=== PATIENT | female | born 1980 | race Caucasian/White ===

== ENCOUNTER 2022-06-07 05:10 | Observation (INO) ==
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
[2022-06-07] MEDS ORDERED: PREGABALIN 75 MG CAP PO SCH (06:00)
[2022-06-07] MEDS ORDERED: ROPIVACAINE 0.5% HCL/PF 150 MG, BUPIVACAINE 0.75% MPF 20 ML, EPINEPHrine 30MG/30ML (OR ... INSTIL SCH (06:00)
[2022-06-07] MEDS ORDERED: dexAMETHasone 4 MG TAB PO SCH (06:00)
[2022-06-07] MEDS ORDERED: METOCLOPRAMIDE HCL 10 MG TABLET PO SCH (06:00)
[2022-06-07] MEDS ORDERED: FAMOTIDINE 20 MG TAB PO SCH (06:00)
[2022-06-07] MEDS ORDERED: ACETAMINOPHEN 500 MG TAB PO SCH ×2 (06:00→14:00)
[2022-06-07] MEDS ORDERED: ceFAZolin 2000MG 2,000 MG/15 ML SYR IV SCH ×2 (06:00→16:00)
[2022-06-07] MEDS ORDERED: LR 500ML BOLUS, THEN 15ML/HR IV SCH (06:00)
[2022-06-07] MEDS ORDERED: BUPIVACAINE 0.5 % 5 MG/1 ML PF 10ML VIAL ONE (06:20)
[2022-06-07] MEDS ORDERED: ROPIVACAINE 0.5% 5 MG/ML 30 ML VIAL ONE (06:21)
[2022-06-07] MEDS ORDERED: TRANEXAMIC ACID / 0.7% NACL 1000MG/100ML BAG IV ONE (06:40)
[2022-06-07] MEDS ORDERED: fentaNYL citrate 100 MCG/2 ML VIAL ONE (06:44)
[2022-06-07] MEDS ORDERED: MIDAZOLAM HCL 1 MG/ML 2ML VIAL ONE (06:44)
[2022-06-07] MEDS ORDERED: PROPOFOL IV EMULSION 10 MG/ML 20 ML VIAL IV ONE (06:47)
[2022-06-07] MEDS ORDERED: ORTHO JOINT ANESTHETIC ONE (06:55)
[2022-06-07] MEDS ORDERED: ONDANSETRON INJ 2 MG/ML 2 ML VIAL ONE (07:32)
[2022-06-07] MEDS ORDERED: ATROPINE SULFATE 0.1 MG/ML 10ML SYR IV PRN ×2 (07:44→07:50)
[2022-06-07] MEDS ORDERED: ePHEDrine sulfate 50 MG/ML AMP IV PRN ×2 (07:44→07:50)
[2022-06-07] MEDS ORDERED: HYDROmorphone INJ 2 MG/ML SYR/VIAL IV PRN ×2 (07:44→07:50)
[2022-06-07] MEDS ORDERED: fentaNYL citrate 100 MCG/2 ML VIAL IV PRN ×2 (07:44→07:50)
[2022-06-07] MEDS ORDERED: ONDANSETRON INJ 2 MG/ML 2 ML VIAL IV PRN ×2 (07:50→10:18)
[2022-06-07] MEDS ORDERED: PROMETHAZINE HCL 12.5 MG in SODIUM CHLORIDE 0.9% 50 ML IV PRN (07:50)
--- NOTE | 2022-06-07 08:56 | Post Operative Brief Note ---
Immediate Post Op Note v1 Date of Surgery June 07, 2022 Pre & Post Diagnosis Operation Date: 06/07/22 07:15 Pre-Op Diagnosis: Left Knee Osteoarthritis Post-Op Diagnosis: Left Knee Osteoarthritis I identified the patient and participated in the time-out.: Yes Procedure Operation Date: 06/07/22 07:15 Actual Procedures p Left Total Knee Arthroplasty, Cemented(Left) - Cal Maddox MD Indications : Nelida is a 41-year-old woman with left knee osteoarthritis. After the failure of conservative treatment I recommended a total knee replacement. I explained the risk benefits and alternatives to her and she consented to proceed. Implants : [place] tri[employer]lon cemented cruciate retaining total knee. Femur size 6. Tibia size 5. Polyethylene size 5 x 9 mm cruciate stabilized. Patella size 36 mm symmetrical. Procedure :the patient was taken to the operating room and after verifying their identity and confirming the operative side spinal anesthesia and a regional block was administered. A nonsterile tourniquet was placed on the operative leg and the operative leg was sterilely prepped and draped in usual fashion. After exsanguinating the leg and inflating the tourniquet a 6 inch incision was made over the patella and carried sharply through subcutaneous tissue. A medial par apatellar arthrotomy was performed, the patella was everted, and planed to a thickness of 14 mm. The appropriate size patella was trialed and the drill holes were completed. The knee was flexed and the femur cleaned of soft tissue. The femoral intramedullary guide was utilized to take a 5 valgus cut 10 mm total resection. The distal femur cut was completed. The cutting guide was removed. The AP sizing guide was placed in the correct size determined. The appropriately sized sized 4 in 1 cutting guide was placed and its position confirmed with the epicondyle axis and anterior cortex. The cuts were completed. The tibia was subluxed forward and the extra medullary tibial guide was placed and pinned in place. A 2 mm resection was measured on the medial tibial plateau perpendicular to the long axis of the tibia. The proximal tibia was cut. The guide was removed. A lamina barber instructor was placed with the knee in 90 of flexion in the remaining meniscus and posterior soft tissue were removed. The PCL was preserved. 20 cc of local injection was utilized in the posterior capsule and soft tissues. The knee was balanced in flexion and extension utilizing the gap photoengraving apprentice. The tibia was subluxed forward and the appropriately sized trial was placed and pinned in place. The femoral trial was placed and the appropriate size poly-was utilized to achieve full extension, full flexion and good stability to varus and valgus stress. Trial components were all removed. The knee was thoroughly irrigated with pulse lavage, bacteriocidal wash, and a repeat pulse lavage. 20 cc of local injection was utilized in the medial tissues and 20 cc in the lateral tissues. Antibiotic cement was mixed using vacuum technique in the tibial and femoral components were cemented in place. The poly-was inserted and the knee held in full extension while the cement hardened. The patella was cemented and clamped. Excess cement was carefully removed. After the cement hardened range of motion was once again assessed and noted to be full including full extension and good stability to varus and valgus stress with central patellar tracking. The knee was irrigated with pulse lavage, a bacteriocidal wash, and a repeat pulse lavage. 20 cc of local was used in the anterior subcutaneous tissues. The arthrotomy was closed with #1 Ethibond, the remaining incision with 2-0 Vicryl and jose martin. A silver dressing was applied and a compression wrap. The patient tolerated the procedure well and there were no intraoperative complications. Parish Garcia PA-C assisted in all aspects of the procedure including patient positioning, prepping and draping, manipulation of surgical instruments and retractors, wound closure, dressing placement, and compression wrap placement. Surgeon Cal Maddox MD Police Patrol Officer Parish Garcia PA-C Estimated Blood Loss 5 Findings Consistent with Post-Op Diagnosis (Yes) Osteoarthritis left knee Specimens Bone and cartilage left knee Complications No complications
[2022-06-07] MEDS ORDERED: RIZATRIPTAN BENZOATE 10 MG TAB PO PRN (10:18)
[2022-06-07] MEDS ORDERED: METOCLOPRAMIDE HCL INJ 5 MG/ML 2 ML VIAL IV PRN (10:18)
[2022-06-07] MEDS ORDERED: oxyCODONE HCL IR 5 MG TAB (IMMEDIATE RELEASE) PO PRN (10:18)
[2022-06-07] MEDS ORDERED: NALOXONE HCL 0.4 MG/1 ML VIAL/CARP IV PRN (10:18)
[2022-06-07] MEDS ORDERED: HYDROmorphone INJ 1 MG/ML SYRINGE IV PRN (10:18)
[2022-06-07] MEDS ORDERED: diphenhydrAMINE Capsule 25 MG CAP PO PRN (10:18)
[2022-06-07] MEDS ORDERED: SODIUM CHLORIDE 0.9% 1000ML 1,000 ML IV SCH (10:18)
[2022-06-07] MEDS ORDERED: bisacodyL 10 MG SUPP PR PRN (10:18)
[2022-06-07] MEDS ORDERED: MAGNESIUM HYDROXIDE SUSP 30 ML UDC PO PRN (10:18)
--- NOTE | 2022-06-07 10:53 | XRay Report ---
TWO VIEWS LEFT KNEE CLINICAL HISTORY: Postoperative examination. FINDINGS: AP and crosstable lateral portable views of the left knee are obtained. A left knee arthrop lasty is in near anatomic alignment. There has been undersurface remodeling of the patella. No acute fracture is seen. There are expected postoperative changes around the knee including skin clips, soft tissue edema, and subcutaneous gas. IMPRESSION: Expected postoperative changes status post left knee arthroplasty. No acute fracture is s een. ACT 112: Negative or not required by law. Electronically signed by: John Schofield M.D. 06/07/2022 10:51 AM
--- NOTE | 2022-06-07 11:08 | Anesthesiology Progress Note ---
Date of Service June 07, 2022 Anesthesia Post Procedure Vital Signs Vital Signs: Temp Pulse Pulse Resp BP Pulse Ox O2 Del Method 06/07/22 10:40 65 16 108/73 97 Room Air 06/07/22 10:10 36.5 C 72 14 100/66 96 Room Air 06/07/22 09:50 36.4 C L 69 18 113/67 98 Room Air 06/07/22 09:15 85 18 108/60 100 Oxymask 06/07/22 09:35 36.3 C L 77 20 96/56 L 99 Room Air 06/07/22 09:25 75 17 112/67 100 Oxymask 06/07/22 09:05 36.5 C 82 16 110/62 99 Oxymask 06/07/22 05:33 36.6 C 83 20 124/89 97 Room Air O2 Flow Rate 06/07/22 10:40 06/07/22 10:10 06/07/22 09:50 06/07/22 09:15 6 06/07/22 09:35 06/07/22 09:25 4 06/07/22 09:05 6 06/07/22 05:33 Pain Intensity Left Knee: Pain Intensity: 6 Transfer of Care Handoff Completed per policy Notes Mental Status: alert / awake / arousable and participated in evaluation Nausea / Vomiting: adequately controlled Pain: adequately controlled Airway Patency, RR, SpO2: stable & adequate BP & HR: stable & adequate Hydration State: stable & adequate Neuraxial Anesthesia: was administered and sensory block is resolving Anesthetic Complications: no major complications apparent and Pt Satisfied with anesthetic care
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
[2022-06-07] MEDS ORDERED: ASPIRIN 81 MG ECTAB PO SCH (21:00)
[2022-06-07] MEDS ORDERED: SENNA 8.6 MG TAB PO SCH (21:00)
[2022-06-07] MEDS ORDERED: PREGABALIN 100 MG CAP PO SCH (21:00)
[2022-06-07] MEDS ORDERED: DOCUSATE SODIUM 100 MG CAP PO SCH (21:00)
[2022-06-07] MEDS ORDERED: TOPIRAMATE 50 MG TAB PO SCH (21:00)
[2022-06-07] MEDS ORDERED: MONTELUKAST SODIUM 10 MG TABLET PO SCH (21:00)
[2022-06-07] MEDS ORDERED: CeleBREX 200 MG CAP PO SCH (21:00)
[2022-06-08] MEDS ORDERED: dexAMETHasone 10 MG in SYRINGE 0 ML IV SCH (08:00)
[2022-06-08] MEDS ORDERED: PREGABALIN 75 MG CAP PO SCH (09:00)
[2022-06-08] MEDS ORDERED: MULTIVITAMIN TAB PO SCH (09:00)
== END 2022-06-07 14:41 | disposition home health service (06) ==
LOC: 3E 05:10 → ASU 05:10